=== PATIENT | female | born 1995 | race Caucasian/White ===

== ENCOUNTER → 2019-01-10 | Day surgery (SDC) | payer OTHER ==
[~2019-01-10] MED LIST: DEXAMETHASONE SOD PHOS INJ 4 MG/ML VIAL ONE; FENTANYL CITRATE/PF 100MCG/2 ML INJ ONE; LIDOCAINE HCL 2% LOCAL INJ 5 ML SDV VIAL INJ ONE; MIDAZOLAM HCL 2 MG/2 ML VIAL ONE; ONDANSETRON HCL INJ 2MG/ML 2ML 2 MG/ML VIAL ONE; PROPOFOL IV EMULSION 10 MG/ML 20 ML VIAL ONE; ROCURONIUM BROMIDE 10 MG/ML 5ML VIAL ONE; SEPTRA DS PO; SEVOFLURANE INHAL SOLN 250 ML PEN BTL ONE; SUCCINYLCHOLINE 200 MG/10 ML SYR ONE; TYLENOL WITH C1 EACH PO
--- OUTSIDE RECORDS SUMMARY | 2019-01-10 07:36 | XMS REPORT ---
Author Author 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 Allergies, Adverse Reactions, Alerts This patient has no known allergies or adverse reactions. Medications This patient has no known medications. Encounters Start Date/Time End Date/Time Encounter Type Admission Type Attending [facility] Facility Care Department Encounter ID 2017-06-18 00:00:00 2017-06-18 00:00:00 Outpatient [facility] [id number] 2017-06-14 19:27:51 2017-06-14 19:27:51 Emergency [facility] [id number] 2016-12-06 00:00:00 2016-12-06 00:00:00 Outpatient [facility] [id number] 2016-11-14 00:00:00 2016-11-14 00:00:00 Outpatient [facility] [id number] 2016-06-13 08:41:06 2016-06-13 08:41:06 Outpatient [facility] [id number]
[2019-01-10 08:31] LABS: BASOPHILS % 0.3 % (0.0-1.0); EOSINOPHILS # (AUTO) 0.1 (0.0-0.4); EOSINOPHILS % 1.9 % (0.0-6.0); HEMATOCRIT 38.7 % (34.2-44.1); HEMOGLOBIN 12.8 g/dL (12.0-16.0); LYMPHOCYTES # (AUTO) 1.3 (1.0-3.2); LYMPHOCYTES % 21.5 % (18.0-39.1); MEAN CORPUSCULAR HEMOGLOBIN 27.1 pg (28-32); MEAN CORPUSCULAR HGB CONC 33.1 g/dL (31-35); MEAN CORPUSCULAR VOLUME 81.8 fL (81-99); MONOCYTES # (AUTO) 0.4 (0.2-0.8); NEUTROPHILS # (AUTO) 4.3 (2.1-6.9); PLATELET COUNT 241 x10e3/uL (140-360); RED BLOOD COUNT 4.73 x10e6/uL (3.6-5.1); RED CELL DISTRIBUTION WIDTH 12.6 % (11.7-14.4)
[2019-01-10 12:45] VITALS: BP 107/69
--- NOTE | 2019-01-10 12:56 | Operative Report ---
DATE OF PROCEDURE: 01/10/2019 SURGEON: Breezy Bucio MD PREOPERATIVE DIAGNOSES: Nuchal abscess, keloid of the nuchal area. PROCEDURE PERFORMED: Incision and drainage of nuchal abscess and excision of keloid. ANESTHESIA: General. ESTIMATED BLOOD LOSS: Minimal. DRAINS: None. COMPLICATIONS: None. INDICATION AND FINDINGS: The patient is a 23-year-old female, who is admitted with an abscess of the nuchal area. She had undergone in the past several I and D's and just inferior to the fluctuant area. There was a keloid that was part of the wall. This was excised and through that defect, which resulted, we placed a Cl[place]is drain. DESCRIPTION OF PROCEDURE: With the patient lying on the operative table in the supine position and after administration of general anesthesia, she was prepped and draped with Betadine, and placed in the right lateral decubitus position, exposing the fluctuant area in the base of the neck. The first incision was made in the most fluctuant area just under the hairline and then the second counterincision inferior to that was made in an elliptical fashion to excise the keloid. The two incisions were interconnected with a Robards drain that was tied to itself with 2-0 silk and then the abscess was drained. Loculations were broken down. Culture and sensitivities were taken. Then, there was granulation tissue there, that was then cauterized, as much of it as possible was removed. Bleeding points were cauterized. The cavity irrigated with saline and Betadine solution, and then packed with Betadine gauze. Sterile dressing was applied. The patient tolerated the procedure well, taken to recovery room in stable condition. MD RADAMES Gupta/MODL /[id number]
== END | disposition home or self-care (01) ==
LOC: OR 07:33 → EDBD 09:30
PROVIDERS: ATTEND Surgery
DX: L02.11 Cutaneous abscess of neck (principal); L91.0 Hypertrophic scar; Z87.891 Personal history of nicotine dependence
CPT/HCPCS: 10061; 36415; 81025; 82948; 85025; 87071; 87075; 87186; 87205; 88305; J1100; J2001; J2250; J2405; J2704; J3010; 88304

== ENCOUNTER 2019-05-02 10:14 | Observation (INO) | payer OTHER ==
[~2019-05-02] VITALS: Ht 162.6 cm; Wt 104.3 kg
[~2019-05-02 10:14] MED LIST changes: -DEXAMETHASONE SOD PHOS INJ 4 MG/ML VIAL ONE; -FENTANYL CITRATE/PF 100MCG/2 ML INJ ONE; -LIDOCAINE HCL 2% LOCAL INJ 5 ML SDV VIAL INJ ONE; -MIDAZOLAM HCL 2 MG/2 ML VIAL ONE; -ONDANSETRON HCL INJ 2MG/ML 2ML 2 MG/ML VIAL ONE; -PROPOFOL IV EMULSION 10 MG/ML 20 ML VIAL ONE; -ROCURONIUM BROMIDE 10 MG/ML 5ML VIAL ONE; -SEVOFLURANE INHAL SOLN 250 ML PEN BTL ONE; -SUCCINYLCHOLINE 200 MG/10 ML SYR ONE
[2019-05-02] MEDS ORDERED: BUPIVACAINE 0.25%/EPI 30ML SDV INJ ONE (10:43)
[2019-05-02] MEDS ORDERED: SUGAMMADEX SODIUM 200 MG/2 ML VIAL IV ONE (12:20)
[2019-05-02] MEDS ORDERED: HYDROGEN PEROXIDE 120 ML BTL ONE (12:37)
[2019-05-02] MEDS ORDERED: BACITRACIN ZINC 15 GM OINT ONE (13:15)
[2019-05-02] MEDS ORDERED: ONDANSETRON HCL INJ 2MG/ML 2ML 2 MG/ML VIAL IV PRN ×2 (13:45)
[2019-05-02] MEDS ORDERED: HYDROMORPHONE 1MG/1ML INJ IV PRN (13:45)
[2019-05-02] MEDS ORDERED: HYDROMORPHONE 2MG/ML 2 MG/ML ML ONE (14:09)
--- NOTE | 2019-05-02 14:21 | NUR ---
RECD PT FROM PACU VIA STRETCHER.AAOX3,IV INFUSING TO RT HAND 20G,DRSG TO RT NECK CD&I RODRIGO DRAIN IN PLACE.DENIES PAIN.
[2019-05-02 14:30] VITALS: BP_SYST 118; BP_DIAS 64; BP_DIAS 68
[2019-05-02] MEDS ORDERED: CEFOXITIN SOD 1 GM VIAL ONE (14:34)
--- NOTE | 2019-05-02 14:39 | Operative Report ---
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 POSTOPERATIVE DIAGNOSES: Recurrent hidradenitis of the nuchal area with abscess formation, and multiple recurrent infections. PROCEDURE PERFORMED: Excision of hydradenitis of the local area. ANESTHESIA: General endotracheal. ESTIMATED BLOOD LOSS: Minimal. DRAINS: None. COMPLICATIONS: None. INDICATION AND FINDINGS: The patient is a 23-year-old obese female, admitted for a drainage of pilonidal abscess and excision of tissue and necrotic tissue. The patient has had in the past, multiple I and Ds, and she continues to recover. At the time of the excision, the patient had no abscess collection of the abscess that had started to drain several days ago had already drained itself. However, she had chronic granulation tissue and infection in the lateral aspect of the wound. It was decided to proceed with the excision of the hidradenitis as there was no pus at this point to be drained all of the granulation tissue and necrotic tissue. DESCRIPTION OF PROCEDURE: With the patient lying on the operative table in the supine position after administration of general anesthesia, she was prepped and draped for excision of hidradenitis of the local area. She was placed in the prone position and then the posterior part of the scalp was shaved, exposing the involved area which encompassed in the in the posterior nuchal area in the midportion of it, there was a hypertrophic scar that had been draining and laterally she had draining sinuses with granulation tissue. All of that was encompassed in an excision in an elliptical fashion down to the fascia of the nuchal muscles. After we excise all of that in bloc, the wound was copiously irrigated with saline and Betadine solution. Bleeding points were cauterized. A 10 mm flat Stu-Pineda drain was placed in the soft tissues and brought out through stab wound lateral and to the right of the incision and then secured there with 3-0 silk and connected it to self-suction. The wound was then closed in layers using 2-0 Vicryl for the soft tissues. The skin was closed using a combination of 2-0 and 3-0 silk. Sterile dressing was applied. The patient tolerated the procedure well. She was taken to recovery room in stable condition. MD RADAMES Gupta/SUMMER /[id number]
[2019-05-02] MEDS: SODIUM CHLORIDE 0.9% 1000ML 1,000 ML IV SCH (14:58)
[2019-05-02] MEDS: CLINDAMYCIN PHOS 900MG/ 50ML 50 ML IV SCH ×2 (15:00→21:19)
[2019-05-02 16:13] VITALS: BP 118/68
[2019-05-02] MEDS: LEVOFLOXACIN 500MG/D5W 100ML 100 ML IV SCH (16:30)
[2019-05-02] MEDS: VANCOMYCIN 1GM/NS 250 ML 250 ML IV SCH (17:30)
--- NOTE | 2019-05-02 18:03 | NUR ---
PT UP IN BED DENIES PAIN ,RODRIGO DRAIN IN PPLACE MININAL DRAINAGE
[2019-05-02] MEDS ORDERED: LIDOCAINE HCL 2% LOCAL INJ 5 ML SDV VIAL INJ ONE (18:10)
[2019-05-02] MEDS ORDERED: LIDOCAINE HCL 2% JELLY 5 ML TUBE ONE (18:10)
[2019-05-02] MEDS ORDERED: ONDANSETRON HCL INJ 2MG/ML 2ML 2 MG/ML VIAL ONE (18:10)
[2019-05-02] MEDS ORDERED: SEVOFLURANE INHAL SOLN 250 ML PEN BTL ONE (18:10)
[2019-05-02] MEDS ORDERED: DEXAMETHASONE SOD PHOS INJ 4 MG/ML VIAL ONE (18:10)
[2019-05-02] MEDS ORDERED: ACETAMINOPHEN 1000 MG/100 ML IV ONE (18:10)
[2019-05-02] MEDS ORDERED: ROCURONIUM BROMIDE 10 MG/ML 5ML VIAL ONE (18:10)
[2019-05-02] MEDS ORDERED: EPHEDRINE SULFATE INJ 50 MG/10 ML SYR ONE (18:10)
[2019-05-02] MEDS ORDERED: PROPOFOL IV EMULSION 10 MG/ML 20 ML VIAL ONE (18:10)
--- NOTE | 2019-05-02 19:05 | NUR ---
Received change of shift report from AM nurse.
[2019-05-02] MEDS ORDERED: MIDAZOLAM HCL 2 MG/2 ML VIAL ONE (19:17)
[2019-05-02] MEDS ORDERED: FENTANYL CITRATE/PF 100MCG/2 ML INJ ONE (19:17)
[2019-05-02 20:00] VITALS: BP 96/51
--- NOTE | 2019-05-02 22:09 | NUR ---
Patient resting quitly with no c/o at this time.Continue monitor.
[2019-05-03] VITALS (7 sets, daily range): BP systolic 84–114; BP diastolic 51–64
[2019-05-03] MEDS: SODIUM CHLORIDE 0.9% 1000ML 1,000 ML IV SCH (02:57)
[2019-05-03] MEDS: VANCOMYCIN 1GM/NS 250 ML 250 ML IV SCH ×2 (03:40→16:30)
--- NOTE | 2019-05-03 05:31 | NUR ---
Patient resting quitly at this time. Continue monitor.
[2019-05-03] MEDS: CLINDAMYCIN PHOS 900MG/ 50ML 50 ML IV SCH ×3 (05:39→21:40)
[2019-05-03 05:57] LABS: BASOPHILS % 0.2 % (0.0-1.0); EOSINOPHILS % 0.1 % (0.0-6.0); HEMATOCRIT 34.8 % (34.2-44.1); LYMPHOCYTES # (AUTO) 2.1 (1.0-3.2); MEAN CORPUSCULAR HEMOGLOBIN 26.3 pg (28-32); MEAN CORPUSCULAR HGB CONC 31.6 g/dL (31-35); MEAN CORPUSCULAR VOLUME 83.1 fL (81-99); MONOCYTES # (AUTO) 0.6 (0.2-0.8); MONOCYTES % 5.5 % (4.4-11.3); NEUTROPHILS # (AUTO) 7.6 (2.1-6.9); NEUTROPHILS % 73.9 % (38.7-80.0); PLATELET COUNT 234 x10e3/uL (140-360); RED BLOOD COUNT 4.19 x10e6/uL (3.6-5.1); RED CELL DISTRIBUTION WIDTH 12.9 % (11.7-14.4)
[2019-05-03 06:26] LABS: BLOOD UREA NITROGEN 6 mg/dL (7-26); BUN/CREATININE RATIO 10 (6-25); CARBON DIOXIDE 26 mmol/L (22-29); CHLORIDE 107 mmol/L (98-107); CREATININE, SERUM 0.61 mg/dL (0.57-1.11); EST GLOMERULAR FILTRATION RATE > 60 ML/MIN (60-); GLUCOSE 109 mg/dL (74-118); SODIUM 141 mmol/L (136-145)
--- NOTE | 2019-05-03 07:35 | NUR ---
PT IN BED RESTING NO DISTRESS NOTED ,DENIES PAIN
--- NOTE | 2019-05-03 10:44 | NUR ---
DR ASH HERE
[2019-05-03] MEDS: HYDROCODONE/APAP 7.5MG-325MG 1 EA TAB PO PRN ×2 (13:23→22:08)
[2019-05-03] MEDS: LEVOFLOXACIN 500MG/D5W 100ML 100 ML IV SCH (14:28)
--- NOTE | 2019-05-03 18:28 | NUR ---
PT IN BED RESTING DENIES PAIN.
--- NOTE | 2019-05-03 20:25 | NUR ---
Received change of shift report from nurse.
[2019-05-04] VITALS: BP 90/50
[2019-05-04 04:00] VITALS: BP 88/51
[2019-05-04] MEDS: VANCOMYCIN 1GM/NS 250 ML 250 ML IV SCH (04:13)
[2019-05-04] MEDS: CLINDAMYCIN PHOS 900MG/ 50ML 50 ML IV SCH (05:52)
--- NOTE | 2019-05-04 07:30 | NUR ---
PT IN BED SLEEPING RODRIGO DRAIN IN PLACE SEROUS DRAINAGE,NO S/S DISCOMFORT
[2019-05-04 07:36] VITALS: BP 105/53
[2019-05-04 08:00] VITALS: BP 105/53
[2019-05-04 12:00] VITALS: BP 91/52
--- NOTE | 2019-05-04 14:35 | NUR ---
pt discharged home ,iv dcd without redness or swelling,christopher drain in place gave instructions regarding empting drain.transported to [facility] via w/c
== END 2019-05-04 14:20 | disposition home or self-care (01) ==
LOC: OR 10:14 → PACU V 13:41 → MED/SURG3 14:21
PROVIDERS: ADMIT Surgery; ATTEND Surgery
DX: L73.2 Hidradenitis suppurativa (principal); L02.11 Cutaneous abscess of neck; Z01.812 Encounter for preprocedural laboratory examination; F41.9 Anxiety disorder, unspecified
CPT/HCPCS: 11450; 36415; 80048; 81025; 85025; 87071; 87205; 88304; G0378 ×3; J0131; J0694; J1100; J1170; J1956 ×2; J2001 ×2; J2405; J2704; J3370 ×3; J7030; J2250; J3010